=== PATIENT | male | born 1945 | race Caucasian/White ===

== ENCOUNTER 2023-09-12 09:09 | Inpatient (IN) | payer MEDICARE ==
[2023-09-12 12:29] LABS: SARS-CoV-2 NAA Rapid Test Not Detected (NotDetected)
[2023-09-12] MEDS ORDERED: Acetaminophen 325 MG TAB PO PRN (12:45)
[2023-09-12] MEDS ORDERED: Acetaminophen 650 MG Suppository PR PRN (12:45)
[2023-09-12 14:40] LABS: Lactic Acid 1.6 mmol/L (0.5-2.2)
[2023-09-12 15:03] LABS: HBSAg Index 0.46 S/CO (0-0.99); Hep B Core Total Ab Non-Reactive (NonReactive); Hep B Core Total Index 0.22 S/CO (0-0.79); Hep B Surf Ag Non-Reactive S/CO (NonReactive)
[2023-09-12 15:05] LABS: HBSAB Concentration 29.93 mIU/mL; Hep B Surf AB Reactive (NonReactive); Hep C IgG Ab Non-Reactive S/CO (NonReactive); Hep C Index 0.09 S/CO (0-0.79)
[2023-09-12] MEDS: Heparin 5,000 UNITS/ML VIAL SC SCH ×2 (17:45→22:45)
[2023-09-12] MEDS ORDERED: Carvedilol 6.25 MG TAB PO SCH (18:15)
[2023-09-12] MEDS ORDERED: Vancomycin Diaylsis Sliding Scale (Wt 71-99) FS SCH (18:15)
[2023-09-12] MEDS: Azithromycin 500 MG in Sodium Chloride 0.9% 250 ML 250 ML IVPB SCH (18:16)
[2023-09-12] MEDS: Cefepime 0.5 GM, Admixture Fee 1 EACH in Sodium Chloride 0.9% 100 ML IVPB SCH (18:16)
[2023-09-12] MEDS: Sevelamer Carbonate 800 MG TAB PO SCH (18:16)
[2023-09-12] MEDS: methylPREDNISolone Sod Succ 40 MG VIAL IVP SCH ×2 (18:17→22:44)
[2023-09-12 18:46] LABS: Troponin I 0.052 ng/mL (< 0.028)
[2023-09-12] MEDS: Ipratropium/Albuterol 3 ML NEB NEB SCH (19:22)
[2023-09-12] MEDS ORDERED: Vancomycin (BATCH) 2 GM in Premix 1 BAG IVPB SCH (20:00)
[2023-09-12] MEDS ORDERED: Vancomycin 1 GM in Premix 1 BAG IVPB SCH (21:00)
[2023-09-12] MEDS: Atorvastatin Calcium 40 MG TAB PO SCH (22:45)
[2023-09-13] MEDS: Ipratropium/Albuterol 3 ML NEB NEB SCH ×4 (01:47→18:58)
[2023-09-13 04:38] LABS: #Monocytes 0.1 thou/uL (0.11-0.59); #Neutrophils 4.1 thou/uL (1.40-6.50); %Basophils 0.2 % (0.0-1.0); %Lymphocytes 9.2 % (21.0-51.0); %Monocytes 2.6 % (0.0-10.0); %Neutrophils 87.6 % (42.0-75.0); Hematocrit 25.2 % (42.0-52.0); Hemoglobin 7.8 g/dL (14.0-18.0); Mean Corpuscular Hemoglobin 31.5 pg (27.0-31.0); Mean Corpuscular Volume 101.6 fl (78.0-98.0); Platelet Count 122 10x3/uL (130-400); RBC Distribution Width 15.5 % (11.5-14.5); Red Blood Cell (RBC) Count 2.48 mill/uL (4.70-6.10); White Blood Cell (WBC) Count 4.7 10x3/uL (4.8-10.8)
[2023-09-13 05:03] LABS: ALT (SGPT) 14 U/L (8-55); AST (SGOT) 29 U/L (5-34); Albumin 3.1 g/dL (3.4-4.8); Alkaline Phosphatase 98 U/L (40-110); Anion Gap 16 mmol/L (10-20); BUN (Urea Nitrogen) 39 mg/dL (8.4-25.7); Bilirubin, Total 0.4 mg/dL (0.2-1.2); Calc. Creatinine Clearance 16 mL/min (70-130); Calcium 8.6 mg/dL (7.8-10.44); Carbon Dioxide 27 mmol/L (23-31); Chloride 100 mmol/L (98-107); Estimated GFR 11; Globulin 2.6 g/dL (2.4-3.5); Glucose 116 mg/dL (83-110); Magnesium 2.1 mg/dL (1.6-2.6); Phosphorus 4.3 mg/dL (2.3-4.7); Potassium 4.5 mmol/L (3.5-5.1); Protein, Total 5.7 g/dL (5.8-8.1); Sodium 138 mmol/L (136-145)
[2023-09-13] MEDS: Levothyroxine Sodium 100 MCG TAB PO SCH (06:24)
[2023-09-13] MEDS: methylPREDNISolone Sod Succ 40 MG VIAL IVP SCH ×3 (06:24→17:41)
[2023-09-13 07:25] LABS: Vancomycin, Random 18.7 ug/mL (See Comment)
[2023-09-13] MEDS ORDERED: Epoetin (ESRD) 10,000 UNITS/ML VIAL SC SCH (08:00)
[2023-09-13] MEDS: Carvedilol 6.25 MG TAB PO SCH ×2 (10:06→17:40)
[2023-09-13] MEDS: Sevelamer Carbonate 800 MG TAB PO SCH ×3 (10:06→17:40)
[2023-09-13 11:15] LABS: Legionella Urinary Ag Negative (Negative); Strep pneumo Urine Ag NEGATIVE (NEGATIVE)
[2023-09-13] MEDS ORDERED: Heparin 10,000 UNITS/ 10 ML VIAL ONE (11:27)
[2023-09-13] MEDS: Heparin 5,000 UNITS/ML VIAL SC SCH ×3 (14:23→21:41)
[2023-09-13] MEDS: Cefepime 0.5 GM, Admixture Fee 1 EACH in Sodium Chloride 0.9% 100 ML IVPB SCH (17:00)
[2023-09-13] MEDS ORDERED: Vancomycin HCl 750 MG in Sodium Chloride 0.9% 250 ML 250 ML IVPB SCH (17:00)
[2023-09-13] MEDS: Azithromycin 500 MG in Sodium Chloride 0.9% 250 ML 250 ML IVPB SCH (17:49)
[2023-09-13] MEDS: Atorvastatin Calcium 40 MG TAB PO SCH (21:41)
[2023-09-14] MEDS: Ipratropium/Albuterol 3 ML NEB NEB SCH ×4 (00:21→19:06)
[2023-09-14] MEDS: methylPREDNISolone Sod Succ 40 MG VIAL IVP SCH ×4 (02:06→23:19)
[2023-09-14] MEDS: Levothyroxine Sodium 100 MCG TAB PO SCH (06:49)
[2023-09-14] MEDS ORDERED: Heparin 10,000 UNITS/ 10 ML VIAL ONE (09:06)
[2023-09-14] MEDS: Sevelamer Carbonate 800 MG TAB PO SCH ×3 (11:41→17:22)
[2023-09-14] MEDS: Heparin 5,000 UNITS/ML VIAL SC SCH ×3 (11:55→23:19)
[2023-09-14] MEDS: Carvedilol 6.25 MG TAB PO SCH ×2 (11:55→17:22)
[2023-09-14] MEDS ORDERED: Vancomycin HCl 750 MG in Sodium Chloride 0.9% 250 ML 250 ML IVPB SCH (17:00)
[2023-09-14] MEDS: Atorvastatin Calcium 40 MG TAB PO SCH (23:18)
[2023-09-15] MEDS: Ipratropium/Albuterol 3 ML NEB NEB SCH ×2 (00:39→08:12)
[2023-09-15 04:41] LABS: #Monocytes 0.7 thou/uL (0.11-0.59); #Neutrophils 5.4 thou/uL (1.40-6.50); %Basophils 0.1 % (0.0-1.0); %Lymphocytes 8.3 % (21.0-51.0); %Monocytes 10.4 % (0.0-10.0); %Neutrophils 80.5 % (42.0-75.0); Hemoglobin 7.5 g/dL (14.0-18.0); Mean Corpuscular HGB CONC 31.3 g/dL (32.0-36.0); Mean Corpuscular Hemoglobin 31.4 pg (27.0-31.0); Mean Corpuscular Volume 100.4 fl (78.0-98.0); Mean Platelet Volume 11.7 fL (7.4-10.4); Red Blood Cell (RBC) Count 2.39 mill/uL (4.70-6.10); White Blood Cell (WBC) Count 6.7 10x3/uL (4.8-10.8)
[2023-09-15 05:07] LABS: Anion Gap 19 mmol/L (10-20); BUN (Urea Nitrogen) 39 mg/dL (8.4-25.7); Calc. Creatinine Clearance 20 mL/min (70-130); Calcium 8.4 mg/dL (7.8-10.44); Carbon Dioxide 23 mmol/L (23-31); Chloride 100 mmol/L (98-107); Estimated GFR 13; Glucose 103 mg/dL (83-110); Potassium 4.5 mmol/L (3.5-5.1); Sodium 137 mmol/L (136-145)
[2023-09-15 05:39] LABS: Platelet Count 109 10x3/uL (130-400)
[2023-09-15] MEDS ORDERED: LevoFLOXacin 500 MG TAB PO SCH (06:00)
[2023-09-15] MEDS: Levothyroxine Sodium 100 MCG TAB PO SCH (06:10)
[2023-09-15 07:27] VITALS: BMI 26.1
[2023-09-15 09:15] VITALS: TEMP 98.1
[2023-09-15] MEDS ORDERED: LevoFLOXacin 250 MG TAB PO SCH (10:00)
[2023-09-15] MEDS ORDERED: Heparin 10,000 UNITS/ 10 ML VIAL ONE (10:34)
[2023-09-15] MEDS: Heparin 5,000 UNITS/ML VIAL SC SCH (12:36)
[2023-09-15] MEDS: Sevelamer Carbonate 800 MG TAB PO SCH ×2 (12:36→12:43)
[2023-09-15 12:42] VITALS: BP 143/87
[2023-09-15] MEDS: methylPREDNISolone Sod Succ 40 MG VIAL IVP SCH (12:42)
[2023-09-15] MEDS: Carvedilol 6.25 MG TAB PO SCH (12:42)
[2023-09-17] MEDS ORDERED: LevoFLOXacin 500 MG TAB PO SCH (06:00)
== END 2023-09-15 13:58 | disposition home or self-care (01) | DRG 291 ==
LOC: ERS 09:09 → 2NO 13:36
PROVIDERS: ADMIT Family Medicine; ATTEND Family Medicine
PROC: 5A1D70Z Performance of Urinary Filtration, Intermittent, Less than 6 Hours Per Day (ICD-10-PCS; 2023-09-12)
PROC: 5A1D70Z Performance of Urinary Filtration, Intermittent, Less than 6 Hours Per Day (ICD-10-PCS; 2023-09-13)
PROC: 5A1D70Z Performance of Urinary Filtration, Intermittent, Less than 6 Hours Per Day (ICD-10-PCS; 2023-09-14)
PROC: 5A1D70Z Performance of Urinary Filtration, Intermittent, Less than 6 Hours Per Day (ICD-10-PCS; principal; 2023-09-15)
DX: I13.2 Hypertensive heart and chronic kidney disease with heart failure and with stage 5 chronic kidney disease, or end stage renal disease (principal); I50.43 Acute on chronic combined systolic (congestive) and diastolic (congestive) heart failure; N18.6 End stage renal disease; J96.01 Acute respiratory failure with hypoxia; J18.9 Pneumonia, unspecified organism; C64.9 Malignant neoplasm of unspecified kidney, except renal pelvis; D63.1 Anemia in chronic kidney disease; K21.9 Gastro-esophageal reflux disease without esophagitis; E78.5 Hyperlipidemia, unspecified; I25.10 Atherosclerotic heart disease of native coronary artery without angina pectoris; Z96.653 Presence of artificial knee joint, bilateral; E03.9 Hypothyroidism, unspecified; Z90.5 Acquired absence of kidney; Z90.49 Acquired absence of other specified parts of digestive tract; Z99.2 Dependence on renal dialysis; Z79.899 Other long term (current) drug therapy; Z98.890 Other specified postprocedural states; Z95.5 Presence of coronary angioplasty implant and graft; Z98.41 Cataract extraction status, right eye; Z98.42 Cataract extraction status, left eye; Z11.52 Encounter for screening for COVID-19
CPT/HCPCS: 36415; 36416; 71046; 71275; 80048; 80053; 80202; 83605; 83735; 84100; 85025; 86140; 86704; 87081; 87449; 87899; 90935; 94640; G0257; J0456; J0692; J1644; J2920; J3370; J3490; J7050; J7620; Q4081

== ENCOUNTER 2023-09-23 13:51 | Outpatient (CLI) | payer MEDICARE | END 2023-09-23 13:52 | disposition home or self-care (01) | LOC: BICCT 13:51 | PROVIDERS: ATTEND Internal Medicine Hematology & Oncology | DX: R04.2 Hemoptysis (principal); R06.2 Wheezing; C64.2 Malignant neoplasm of left kidney, except renal pelvis; C77.1 Secondary and unspecified malignant neoplasm of intrathoracic lymph nodes; I50.1 Left ventricular failure, unspecified; N18.6 End stage renal disease; J18.1 Lobar pneumonia, unspecified organism; J90 Pleural effusion, not elsewhere classified; J39.8 Other specified diseases of upper respiratory tract | CPT/HCPCS: 70490 ==